=== PATIENT | female | born 1960 | race Caucasian/White ===

== ENCOUNTER 2019-03-27 06:50 | Day surgery (SDC) | payer BC ==
[2019-03-27] VITALS (12 sets, daily range): BP systolic 110–144; BP diastolic 50–70; PULSE 50–64; RESP 13–27; Ht 154.9 cm; Wt 72.5 kg
[~2019-03-27] VITALS: Ht 154.9 cm; Wt 72.5 kg
[2019-03-27] MEDS ORDERED: CEFAZOLIN 2 GM/50 ML (PMX) 50 ML IVPB ONE (09:00)
[2019-03-27] MEDS ORDERED: SOD CHLORIDE 0.9% 1,000 ML IV ONE (09:00)
--- NOTE | 2019-03-27 10:45 | PREAC ---
Date/Time of Note Date/Time of Note DATE: 03/27/19 TIME: 10:44 Anesthesia Eval and Record Evaluation Time Pre-Procedure Interview DATE: 03/27/19 TIME: 10:44 Age 58 Sex female NPO: 8 hrs Preoperative diagnosis inguinal hernia Planned procedure Inguinal hernia repair with mesh Past Medical History Past Medical History: Includes GI: Obesity Surgery & Anesthesia Issues No known issue Meds Anticoagulation: No Beta Dale within 24 hr: No Reason Beta Dale not given: Pt. not on B-Dale No Active Prescriptions or Reported Meds Current Medications Sodium Chloride 1,000 ml @ 75 mls/hr [id number] ONCE IV ; Start 03/27/19 at 09:00; Stop 03/27/19 at 22:19 Meds reviewed: Yes Allergies Coded Allergies: No Known Allergy (Unverified , 03/27/19) Allergies Reviewed: Yes Labs/Studies Labs Reviewed: Reviewed by anesthesiologist test: N/A Studies: ECG Pre-procedure Exam Last vitals Vital Signs Date Temp Pulse Resp B/P (MAP) Pulse Ox O2 O2 Flow FiO2 Time Delivery Rate 03/27/19 97.0 63 16 117/56 98 Room Air 08:10 (76) Airway: Adequate mouth opening, Adequate thyromental dist Mallampati: Mallampati II Teeth: Normal Lung: Normal Heart: Normal ASA Physical Status ASA physical status: 2 Emergency: None Planned Anesthetic General/MAC: ETT Nerve block: TAP (left) Pre-operative Attestations Prior to commencing anesthesia and surgery, the patient was re-evaluated, there was verification of: *The patient's identity *The results of appropriate recent lab work and preoperative vital signs *The above evaluation not changing prior to induction *Anesthetic plan, risk benefits, alternative and complications discussed with patient/family; questions answered; patient/family understands, accepts and wishes to proceed. WALDEMAR MARSH Mar 27, 2019 10:45
[2019-03-27] MEDS ORDERED: DIPHENHYDRAMINE 50 MG INJ IV PRN (11:00)
[2019-03-27] MEDS ORDERED: METOCLOPRAMIDE 10 MG INJ IV PRN (11:00)
[2019-03-27] MEDS ORDERED: FENTAnyl 50 MCG/ML VIAL IV PRN ×2 (11:00)
[2019-03-27] MEDS ORDERED: MEPERIDINE 25 MG INJ IV PRN (11:00)
[2019-03-27] MEDS ORDERED: ONDANSETRON 4 MG INJ IV PRN (11:00)
[2019-03-27] MEDS ORDERED: HYDROmorphONE 1 MG/5 ML IV SYRINGE IV PRN (11:00)
[2019-03-27] MEDS ORDERED: ALBUTEROL 0.083% (NEB) 2.5 MG/3 ML AMP HHN PRN (11:00)
[2019-03-27] MEDS ORDERED: FENTAnyl 50 MCG/ML VIAL ONE (11:16)
[2019-03-27] MEDS ORDERED: ROPIVACAINE 0.5 % 30 ML VIAL ONE (11:16)
[2019-03-27] MEDS ORDERED: SUCCINYLCHOLINE CHLORIDE 100 MG/5 ML SYG IV ONE ×2 (11:16→11:52)
[2019-03-27] MEDS ORDERED: ROCURONIUM 50 MG INJ ONE (11:52)
[2019-03-27] MEDS ORDERED: PROPOFOL 20 ML ONE (11:52)
[2019-03-27] MEDS ORDERED: SUGAMMADEX SODIUM 200 MG/2 ML VIAL IV ONE (11:57)
[2019-03-27] MEDS ORDERED: LIDOCAINE 1% (MDV) 20 ML INJ ONE (11:57)
--- NOTE | 2019-03-27 12:07 | OPR ---
Date/Time of Note Date/Time of Note DATE: 03/27/19 TIME: 12:03 Operative Report Procedure Date: Mar 27, 2019 Preoperative Diagnosis recurrent left incarcerated inguinal hernia Postoperative Diagnosis same Operation/Procedure Performed 1. excision of cicatrix 7 x 2 cm 2. open recurrent incarcerated left inguinal hernia repair with large ultrapro plug hernia system mesh Surgeon see signature line Heater Operator none Anesthesia Type: general Estimated Blood Loss: 0 - 10 ml's Transfusion none Specimen none Grafts/Implants none Complications none Pt Condition Post Procedure: stable Indications This is a 58-year-old female with recurrent left incarcerated inguinal hernia. She requires surgical repair. Risks alternatives benefits and personal were discussed the patient. Patient expresses understanding and consents to the operation. Procedure Description Patient is taken to the OR and prepped and draped in usual sterile fashion. She had a poor prior incision with poor healing and elliptical incision was made around the prior incision. The cicatrix was then excised with cautery. Dissection with cautery was carried down to the scar tissue down to the external oblique. Externally fascia was opened with a 15 blade and this incision was extended medial fairly lateral superiorly. It appeared that the round ligament was still intact and at the anterior medial aspect there was a recurrent incarcerated inguinal hernia. Lysis of adhesions was performed and the round ligament was divided and the incarcerated inguinal hernia was then manually reduced. The disc portion of the ultra pro hernia system mesh was then secured in place with a running 0 Prolene from the pubic tubercle along the shelving edge of the inguinal ligament. Superiorly the disc is secured to the internal oblique with interrupted 3-0 Vicryl. Onlay mesh was secured in a similar fashion with a running 0 Prolene from the pubic tubercle along the shelving of the inguinal ligament. Superiorly the onlay mesh was secured to internal oblique with interrupted 3-0 Vicryl. Mechelle's fascia is closed with interrupted 3-0 Vicryl. Skin is closed using inzorb observable skin stapler. A tap block was provided by the anesthesiologist. Steri-Strips and dry dressings were applied. Dhaval LUTZ Mar 27, 2019 12:07
[2019-03-27] MEDS: HYDROmorphONE 1 MG/5 ML IV SYRINGE IV PRN ×2 (12:21→12:27)
[2019-03-27] MEDS ORDERED: POLYMYXIN/BACITRACIN 1L IRRIG ONE (12:24)
[2019-03-27] MEDS ORDERED: HYDROCODONE/APAP (5/325) TAB PO ONE ×2 (12:30→15:00)
--- NOTE | 2019-03-28 07:19 | PAC ---
Date/Time of Note Date/Time of Note DATE: 03/28/19 TIME: 07:19 Post-Anesthesia Notes Post-Anesthesia Note Last documented vital signs Vital Signs Date Temp Pulse Resp B/P (MAP) Pulse Ox O2 O2 Flow FiO2 Time Delivery Rate 03/27/19 98.0 13:22 03/27/19 57 16 123/61 98 13:09 (81) 03/27/19 Room Air 12:56 03/27/19 2.0 12:41 Activity: WNL Respiratory function: WNL Cardiovascular function: WNL Mental status: Baseline Pain reasonably controlled: Yes Hydration appropriate: Yes Nausea/Vomiting absent: Yes WALDEMAR MARSH Mar 28, 2019 07:19
== END 2019-03-27 15:20 | disposition home or self-care (01) ==
LOC: SDS 06:50
PROVIDERS: ATTEND Surgery
DX: K40.31 Unilateral inguinal hernia, with obstruction, without gangrene, recurrent (principal)
CPT/HCPCS: 49521; C1781; J0690; J1170; J2405; J2795; J3010; Z7512; Z7610